=== PATIENT | female | born 1995 | race African-American/Black ===

== ENCOUNTER 2022-07-18 09:47 | Outpatient (CLI) | payer BC, OTHER | END 2022-07-18 09:48 | disposition home or self-care (01) | LOC: CSHLAB 09:47 | PROVIDERS: ATTEND Obstetrics & Gynecology | DX: Z20.822 Contact with and (suspected) exposure to COVID-19 (principal) | CPT/HCPCS: 87811 ==

== ENCOUNTER 2022-07-22 05:30 | Inpatient (IN) | payer BC, OTHER ==
[~2022-07-22 05:30] MED LIST: Acetaminophen 500 MG TAB PO PRN; Butorphanol Tartrate 1 MG/ML VIAL SLOW IVP PRN; Carboprost 250 MCG/ML AMP IM PRN; Diphenoxylate HCl/Atropine Tablet PO PRN; Docusate 100 MG CAP PO PRN; HYDROcodone/Acetaminophen 5/325 mg Tablet PO PRN; Ibuprofen 800 MG TAB PO PRN; Lidocaine 1% (PF) 30 ML VIAL SC PRN; Methylergonovine 0.2 MG/ML VIAL IM PRN; Misoprostol 200 MCG TAB PR PRN; NS w/ Oxytocin 30 units 500 ML IV SCH; Ondansetron PF 4 MG/2 ML Vial IVP PRN; Promethazine HCl 25 MG/ML VIAL IM PRN; hydrALAZINE 20 MG/ML VIAL SLOW IVP PRN
[2022-07-22] MEDS ORDERED: Bupivacaine 0.25% HCL 30 ML VIAL ONE (08:00)
[2022-07-22 11:22] VITALS: BMI 37.5
[2022-07-22 11:50] LABS: Mean Corpuscular HGB CONC 35.1 g/dL (32.0-36.0); Mean Corpuscular Hemoglobin 30.7 pg (27.0-33.0); Mean Corpuscular Volume 87.4 fl (81.6-98.3); Mean Platelet Volume 11.9 fl (7.4-10.4); Platelet Count 251 10x3/uL (150-450); RBC Distribution Width 12.5 % (11.5-14.5); Red Blood Cell (RBC) Count 3.58 10x6/uL (3.90-5.03)
[2022-07-22 12:31] LABS: HBSAg Index 0.21 S/CO (0-0.99); Hep B Surf Ag Non-Reactive S/CO (NonReactive); Syphilis Antibody Nonreactive (Nonreactive); Syphilis Antibody Index 0.05 S/CO (<1.00 Non-Reactive)
[2022-07-22] MEDS ORDERED: Ondansetron PF 4 MG/2 ML Vial IVP PRN ×2 (14:15→18:44)
[2022-07-22] MEDS ORDERED: Moisturizing Cream (Eucerin) 113 GM JAR TOP PRN (14:15)
[2022-07-22] MEDS ORDERED: diphenhydrAMINE 50 MG/ML VIAL IVP PRN (14:15)
[2022-07-22] MEDS ORDERED: ePHEDrine Sulfate 50 MG/10 ML VIAL SLOW IVP PRN (14:15)
[2022-07-22] MEDS ORDERED: Acetaminophen 325 MG TAB PO PRN (14:15)
[2022-07-22] MEDS ORDERED: Communication Order-Pharmacy FS SCH (14:15)
[2022-07-22] MEDS ORDERED: Promethazine HCl 25 MG/ML VIAL IM PRN ×2 (14:15→18:44)
[2022-07-22] MEDS ORDERED: Naloxone HCl 0.4 mg/ml Vial IVP PRN ×2 (14:15)
[2022-07-22] MEDS ORDERED: Fentanyl 2 mcg/Bupivacaine 0.1% Cassette 100 ML EPIDURAL SCH (14:15)
[2022-07-22] MEDS ORDERED: Lactated Ringer's 500 ML IV PRN (14:19)
[2022-07-22] MEDS ORDERED: Fentanyl 2 mcg/Bup 0.1% Cadd 100 ML ONE (14:44)
[2022-07-22] MEDS ORDERED: Zolpidem Tartrate 5 MG TAB PO PRN (18:44)
[2022-07-22] MEDS ORDERED: Preparation H Ointment 28 GM TUBE PR PRN (18:44)
[2022-07-22] MEDS ORDERED: diphenhydrAMINE 25 MG CAP PO PRN (18:44)
[2022-07-22] MEDS ORDERED: hydrALAZINE 20 MG/ML VIAL SLOW IVP PRN (18:44)
[2022-07-22] MEDS ORDERED: Varicella virus, LIVE 0.5 ML VIAL SC ONE (18:44)
[2022-07-22] MEDS ORDERED: Milk Of Magnesia 30 ML UDCUP PO PRN (18:44)
[2022-07-22] MEDS ORDERED: Measles/Mumps/Rubella 10 MCG/0.5 ML VIAL SC ONE (18:44)
[2022-07-22] MEDS ORDERED: Lanolin Ointment 7 GM TUBE TOP PRN (18:44)
[2022-07-22] MEDS ORDERED: Bisacodyl 10 MG SUPP PR PRN (18:44)
[2022-07-22] MEDS ORDERED: Boostrix 0.5 ML (Tdap) VIAL IM ONE (18:44)
[2022-07-22] MEDS ORDERED: NS w/ Oxytocin 30 units 500 ML IV SCH (18:45)
[2022-07-22] MEDS: Docusate 100 MG CAP PO SCH (21:36)
[2022-07-23] MEDS: Ibuprofen 800 MG TAB PO SCH ×3 (05:35→21:30)
[2022-07-23 05:43] LABS: Hemoglobin 10.6 g/dL (12.0-15.5); Mean Corpuscular HGB CONC 33.9 g/dL (32.0-36.0); Mean Corpuscular Hemoglobin 29.9 pg (27.0-33.0); Mean Corpuscular Volume 88.4 fl (81.6-98.3); Mean Platelet Volume 11.5 fl (7.4-10.4); Platelet Count 247 10x3/uL (150-450); RBC Distribution Width 12.5 % (11.5-14.5); Red Blood Cell (RBC) Count 3.54 10x6/uL (3.90-5.03); White Blood Cell (WBC) Count 9.9 10x3/uL (3.5-10.5)
[2022-07-23] MEDS: Docusate 100 MG CAP PO SCH ×2 (08:19→21:31)
[2022-07-23] MEDS: HYDROcodone/Acetaminophen 5/325 mg Tablet PO PRN ×2 (08:19→16:34)
[2022-07-23] MEDS: Prenatal Vitamin 1 TAB PO SCH (08:19)
[2022-07-23] MEDS: Ferrous Sulfate 325 MG TAB PO SCH ×2 (08:46→08:47)
[2022-07-23] MEDS: Lactated Ringer's 1,000 ML IV SCH (20:27)
[2022-07-24] MEDS: HYDROcodone/Acetaminophen 5/325 mg Tablet PO PRN (00:26)
[2022-07-24] MEDS: Lactated Ringer's 1,000 ML IV SCH ×3 (00:29→08:46)
[2022-07-24] MEDS: Ibuprofen 800 MG TAB PO SCH (05:25)
[2022-07-24] MEDS: Ferrous Sulfate 325 MG TAB PO SCH (08:46)
[2022-07-24] MEDS: Docusate 100 MG CAP PO SCH (08:47)
[2022-07-24] MEDS: Prenatal Vitamin 1 TAB PO SCH (08:47)
[2022-07-24 11:51] VITALS: BP 119/65; TEMP 98
== END 2022-07-24 14:00 | disposition home or self-care (01) | DRG 807 ==
LOC: CSHLD 05:36 → CSHPP 19:33
PROVIDERS: ADMIT Obstetrics & Gynecology; ATTEND Obstetrics & Gynecology
PROC: 10E0XZZ Delivery of Products of Conception, External Approach (ICD-10-PCS; principal; 2022-07-22)
DX: O10.92 Unspecified pre-existing hypertension complicating childbirth (principal); Z37.0 Single live birth; Z3A.38 38 weeks gestation of pregnancy; Z86.16 Personal history of COVID-19
CPT/HCPCS: 36415; 51702; 85027; 86780; 86850; 86900; 86901; 87340; J2590; S0020